=== PATIENT | female | born 1940 | race Caucasian/White ===

== ENCOUNTER 2016-03-14 10:03 | Inpatient (IN) ==
[2016-03-08 12:17] LABS: Appearance,Urine CLEAR; Bacteria,Urine 0 /hpf (0); Bilirubin,Urine NEG (NEG); Calcium Oxalate Crystals,Urine FEW /hpf (0); Color,Urine YELLOW; Glucose,Urine (UA) NEGATIVE (NEG); Leukocyte Esterase,Urine 25 /uL (NEG); Mucus,Urine FEW /hpf (0); Nitrate,Urine NEG (NEG); Protein,Urine NEG (NEG); Specific Gravity,Urine 1.019 (1.000-1.035); Urine Blood 0.2 mg/dL (<0.03); Urine Hyaline Cast 1 /lpf (0-2); Urine RBC 8 /hpf (0-1); Urine Squamous Epithelial Cell < 1 /hpf (0-4); Urine Transitional Epi Cells < 1 /hpf (0-2); Urine WBC 2 /hpf (0-4); Urobilinogen,Urine NEG (NEG)
[2016-03-08 12:47] LABS: Basophils # (Auto) 0 K/mcL (0.0-0.3); Basophils % (Auto) 0.5 % (0.0-2.0); Eosinophils # (Auto) 0.2 K/mcL (0.0-0.7); Eosinophils % (Auto) 2.2 % (0.0-7.0); Granulocytes % (Auto) 62.4 % (38.0-78.0); Lymphocytes # (Auto) 2.1 K/mcL (1.5-4.8); Lymphocytes % (Auto) 26.3 % (15.5-49.0); Mean Cell Volume 90.9 fL (80.0-100.0); Mean Corpuscular HGB Conc 32.2 g/dL (31.0-36.0); Mean Corpuscular Hemoglobin 29.3 pg (26.0-34.0); Monocytes # (Auto) 0.7 K/mcL (0.1-0.9); Monocytes % (Auto) 8.6 % (1.0-9.0); Platelet Count 272 K/mcL (140-440); RBC 4.94 M/mcL (4.00-5.20); Red Cell Distribution Width 12.9 % (11.5-14.5)
[2016-03-08 12:55] LABS: Blood Urea Nitrogen 18 mg/dl (8-23)
[~2016-03-14 10:03] MED LIST: ACETAMINOPHEN 500 MG TABLET PO SCH; EPINEPHRINE IJ SCH; KETOROLAC 30 MG, ROPIVACAINE HCL/PF 49.5 ML, EPINEPHrine 0.5 MG, 0.9 % SODIUM CHLORIDE ... IJ SCH; PREGABALIN 150 MG CAPSULE PO SCH; ROPIVACAINE HCL IJ SCH; SODIUM CHLORIDE IJ SCH; ceFAZolin 1 GM VIAL IV SCH; oxyCODONE 10 MG TAB.ER.12H PO SCH
[2016-03-14] MEDS ORDERED: PROPOFOL 200 MG/20 ML VIAL IV ONE (13:25)
[2016-03-14] MEDS ORDERED: fentaNYL 250 MCG/5 ML VIAL IV ONE (13:25)
[2016-03-14] MEDS ORDERED: ePHEDrine 50 MG/ML AMPUL IV ONE (13:25)
[2016-03-14] MEDS ORDERED: ROPIVACAINE HCL/PF 30 ML VIAL IJ ONE (13:25)
[2016-03-14] MEDS ORDERED: PHENYLEPHRINE 10 MG/ML VIAL IV ONE (13:25)
[2016-03-14] MEDS ORDERED: MIDAZOLAM 5 MG/5 ML VIAL IV ONE (13:25)
[2016-03-14] MEDS ORDERED: TRANEXAMIC ACID 1,000 MG/10 ML VIAL IV ONE ×2 (13:25→14:34)
[2016-03-14] MEDS ORDERED: DEXAMETHASONE 10 MG/ML VIAL IV ONE (13:25)
[2016-03-14] MEDS ORDERED: ONDANSETRON 4 MG/2 ML VIAL IV ONE (13:25)
[2016-03-14] MEDS ORDERED: LIDOCAINE HCL/PF 100 MG/5 ML SYRINGE IV ONE (13:25)
[2016-03-14] MEDS ORDERED: GENTAMICIN SULFATE 800 MG/20 ML VIAL IR ONE (13:46)
[2016-03-14] MEDS ORDERED: METHOCARBAMOL 1,000 MG/10 ML VIAL IV PRN (13:55)
[2016-03-14] MEDS ORDERED: LACTATED RINGERS 250 ML IV PRN (13:55)
[2016-03-14] MEDS ORDERED: PROMETHAZINE 25 MG/ML VIAL IM ONE (13:55)
[2016-03-14] MEDS ORDERED: ONDANSETRON 4 MG/2 ML VIAL IV PRN ×2 (13:55→14:34)
[2016-03-14] MEDS ORDERED: fentaNYL 100 MCG/2 ML VIAL IV PRN (13:55)
[2016-03-14] MEDS ORDERED: PROMETHAZINE 25 MG/ML VIAL IV PRN (13:55)
[2016-03-14] MEDS ORDERED: BENZOCAINE/MENTHOL 1 LOZENGE PO PRN ×2 (13:55→14:34)
[2016-03-14] MEDS ORDERED: MEPERIDINE 25 MG/ML SYRINGE IV PRN (13:55)
[2016-03-14] MEDS ORDERED: HYDROmorphone 2 MG/ML SYRINGE IV PRN ×2 (13:55→14:34)
[2016-03-14] MEDS ORDERED: diphenhydrAMINE 50 MG/ML VIAL IV PRN (13:55)
[2016-03-14] MEDS ORDERED: METOCLOPRAMIDE 10 MG/2 ML VIAL IV PRN (13:55)
[2016-03-14] MEDS ORDERED: FLUMAZENIL 0.1 MG/ML ML IV PRN (13:55)
[2016-03-14] MEDS ORDERED: IPRATROPIUM/ALBUTEROL 3 ML AMPUL.NEB NEB PRN (13:55)
[2016-03-14] MEDS ORDERED: NALOXONE HCL 0.4 MG/ML VIAL IV PRN (13:55)
[2016-03-14] MEDS ORDERED: ePHEDrine 50 MG/ML AMPUL IV PRN (13:55)
[2016-03-14] MEDS ORDERED: MEPERIDINE 50 MG/ML SYRINGE IM ONE (13:55)
[2016-03-14] MEDS ORDERED: LACTATED RINGERS 1,000 ML IV SCH (14:00)
[2016-03-14] MEDS ORDERED: ACETAMINOPHEN 325 MG TABLET PO PRN (14:34)
[2016-03-14] MEDS ORDERED: TEMAZEPAM 15 MG CAPSULE PO PRN (14:34)
[2016-03-14] MEDS ORDERED: HYDROcodone/APAP 10/325MG TABLET PO PRN (14:34)
[2016-03-14] MEDS ORDERED: MAGNESIUM HYDROXIDE 30 ML ORAL.SUSP PO PRN (14:34)
[2016-03-14] MEDS ORDERED: POLYETHYLENE GLYCOL 3350 17 GM PACKET PO PRN (14:34)
[2016-03-14] MEDS ORDERED: BISACODYL 10 MG SUPP.RECT PR PRN (14:34)
[2016-03-14] MEDS ORDERED: FLEETS ADULT ENEMA PR PRN (14:34)
--- NOTE | 2016-03-14 14:34 | Brief Operative Note ---
Date of procedure: 03/14/16 Pre-op diagnosis: left knee djd in all three compartment Post-op diagnosis: same Procedure: left tka Grafts/Implants: Yes Anesthesia: GETA Complications: none Complications Description: 03/14/16 14:33 none Surgeon: Aquiles Baltazar Wire Twisting Machine Operator: Wes Nam
--- NOTE | 2016-03-14 15:32 | XRay Report ---
HISTORY: Reason for Exam:Post-Op Total Knee FINDINGS: There is a well positioned total knee prosthesis. There is no acute fracture. Lateral to the prosthetic tibial plateau there are 2 small, contiguous well-circumscribed soft tissue calcifications. These may be old spurs. There is another smaller dystrophic calcification along the medial side of the joint. IMPRESSION: Well-positioned knee prosthesis Interpreted and Authenticated by: Tadeo Noble 03/14/16
--- NOTE | 2016-03-14 16:08 | Operative Note ---
DATE OF OPERATION: 03/14/2016 PREOPERATIVE DIAGNOSIS: Left knee degenerative arthritis, severe. POSTOPERATIVE DIAGNOSIS: Left knee degenerative arthritis, severe. PROCEDURE: Left total knee arthroplasty. SURGEON: Aquiles Baltazar MD. FREIGHT HUSTLER: Wes Nam PA-C. ANESTHESIA: General LMA anesthesia. COMPLICATIONS: None. ESTIMATED BLOOD LOSS: About 50 mL. IMPLANTS: ODC size 4 femur, size 3 tibial baseplate with a 12 mm poly, 35 mm patellar button. DESCRIPTION OF PROCEDURE: The patient was brought to the operating room and put to sleep with general LMA anesthesia. Once asleep, the patient had the left leg sterilely prepped and draped in the usual sterile fashion. Leg was exsanguinated and tourniquet inflated to 250 pounds of pressure. We confirmed the operative site, and the patient received preoperative antibiotics and tranexamic acid. Once this was confirmed, we then placed sterile bandage on. We then placed a midline incision, a mid vastus approach performed. We showed severe arthritis of the patellofemoral joint and the medial compartment. At this point, we proceeded with a total knee arthroplasty. We placed an intramedullary guide hole into the femur and the tibia. We made our distal femoral cut at 9 mm. We then made our anterior and posterior and chamfer cuts for a size 9 component after sizing the knee, and then the tibia was cut to 9 mm below the least worn area medially. Once this was done, we then removed the bony fragments, removed the meniscus and remnants. Once these were removed, the meniscus and loose bodies, spurs were removed posteriorly, and then we placed a tibial baseplate size 3. We punched into place a punch for the ODC knee, and then trialed the femur and the tibia. The size was approximately size 4 femur, size 3 tibia. We trialed a 9, a 10, an 11 and then a 12 poly. It was stable medially, but unstable laterally or tight laterally. To balance the knee both in flexion and extension, we did a subperiosteal release of the lateral collateral ligament on the femoral side. This seemed to be tight only in extension, not in flexion. We irrigated thoroughly and then this balanced very nicely both in extension and flexion and mid flexion. We then cemented into place a size 4 femur, a size 3 tibial baseplate, and a 12 mm poly was placed. The patella, though only measuring about 16 to 17 mm, was cut to a 13 mm thickness and then a 35 mm patellar button was used to resurface the patella. This gave excellent alignment and tracking. The patella was cemented into place with a 35 mm patella. We irrigated thoroughly. Tourniquet was deflated at approximately 50 minutes. Once this was done, we then closed the mid vastus approach with #2 Ethibond and #1 double-armed Maxon stitch was an interlocking stitch. Skin was closed with 2-0 Vicryl and romana superficially. The patient tolerated this well without complication. RBH:mel Job ID: [id number] Doc ID: [id number] Aquiles Baltazar MD
[2016-03-14] MEDS: 0.45 % SODIUM CHLORIDE 1,000 ML IV SCH (16:10)
[2016-03-14] MEDS: KETOROLAC 15 MG/ML VIAL IV SCH (17:44)
[2016-03-14] MEDS ORDERED: SENNOSIDES 1 TABLET PO SCH (21:00)
[2016-03-14] MEDS: DOCUSATE SODIUM 100 MG CAPSULE PO SCH (21:17)
[2016-03-14] MEDS: ASPIRIN 325 MG ENTERIC COATED TABLET PO SCH (21:17)
[2016-03-14] MEDS: ceFAZolin 1 GM VIAL IV SCH (21:23)
[2016-03-14] MEDS: 0.9 % SODIUM CHLORIDE 10 ML SYRINGE IV SCH (22:03)
[2016-03-15] MEDS: KETOROLAC 15 MG/ML VIAL IV SCH ×2 (00:32→06:28)
[2016-03-15] MEDS: 0.45 % SODIUM CHLORIDE 1,000 ML IV SCH ×3 (00:33→06:45)
[2016-03-15] MEDS: ceFAZolin 1 GM VIAL IV SCH (05:13)
[2016-03-15] MEDS: 0.9 % SODIUM CHLORIDE 10 ML SYRINGE IV SCH (05:36)
[2016-03-15] MEDS: ASPIRIN 325 MG ENTERIC COATED TABLET PO SCH (07:19)
--- NOTE | 2016-03-15 07:35 | Orthopedic Progress Note ---
Subjective Patient information: Note initiated : 03/15/16 at 7:33 am Service Date, if different from initiated Date: [] Patient: Shelbi Choi 76 y/o F admitted on 03/14/16 for Left Total Knee Arthroplasty. Chief Complaint: [Pt is stable this morning on post operative day 1 without any significant concerns or complaints. Patients vital signs have remained stable. Patients dressing is dry and exhibits a grossly intact neurovascular and neuromotor exam. Patients 10 point ROS is otherwise negative. ] Objective Vital signs: Vital Signs Temp Pulse Resp BP Pulse Ox 03/15/16 06:48 71 14 95 03/15/16 04:00 97.6 F 71 12 101/57 98 03/15/16 00:00 98.2 F 75 12 116/62 95 03/14/16 22:10 95 03/14/16 19:19 97.5 F L 70 12 100/62 95 03/14/16 18:34 95 03/14/16 18:09 68 102/63 96 03/14/16 17:39 69 108/67 96 03/14/16 17:24 76 106/64 96 03/14/16 17:09 69 110/69 96 03/14/16 16:54 73 122/65 95 03/14/16 16:39 70 117/71 94 03/14/16 16:24 71 115/72 93 03/14/16 16:09 75 110/69 91 03/14/16 16:00 96.7 F L 80 16 113/68 94 03/14/16 15:37 98.0 F 77 16 124/57 95 03/14/16 15:25 88 16 124/57 95 03/14/16 15:10 85 20 114/62 95 03/14/16 14:54 97.6 F 81 12 104/55 99 03/14/16 10:57 98.6 F 66 16 123/79 97 Intake and Output 03/14/16 03/15/16 03/15/16 21:59 05:59 13:59 Intake Total 1740 / 1740 1950 / 1950 1000 / 1000 Output Total 150 / 150 725 / 725 Balance 1590 / 1590 1225 / 1225 1000 / 1000 Intake: IV 1300 / 1300 1000 / 1000 1000 / 1000 Sodium Chloride 0.45% 1, 1000 / 1000 1000 / 1000 000 ml @ 125 mls/hr IV . Q8H NI Rx#:[id number] Oral 440 / 440 950 / 950 Output: Void Amount 100 / 100 725 / 725 Estimated Blood Loss 50 / 50 Other: Meal Dinner Percent of Meal Consumed 25% Feeding Ability Independent # Voids 1 1 Weight 169 lb 8 oz Intake & Output: Intake & Output 03/14/16 03/15/16 03/15/16 21:59 05:59 13:59 Intake Total 1740 / 1740 1950 / 1950 1000 / 1000 Output Total 150 / 150 725 / 725 Balance 1590 / 1590 1225 / 1225 1000 / 1000 Weight 169 lb 8 oz Intake: IV 1300 / 1300 1000 / 1000 1000 / 1000 Sodium Chloride 0.45% 1, 1000 / 1000 1000 / 1000 000 ml @ 125 mls/hr IV . Q8H NI Rx#:[id number] Oral 440 / 440 950 / 950 Output: Void Amount 100 / 100 725 / 725 Estimated Blood Loss 50 / 50 Other: Meal Dinner Percent of Meal Consumed 25% Feeding Ability Independent # Voids 1 1 Incision: Yes healing Incision clean and dry: Yes Dressing: Yes clean, Yes dry Weight bearing status: full Neurological exam IM: Yes neurovascular intact Extremities exam IM: Yes Foot pink and warm, Yes neurovascular intact - Labs CBC & BMP: 03/15/16 05:10 03/08/16 10:19 Labs: Orthopedic Labs 03/08/16 10:19 PT 13.6 INR 1.0 APTT 32 03/15/16 03/08/16 05:10 10:19 Hgb 14.5 Hct 37.0 44.9 Assessment and Plan (1) Hx of total knee arthroplasty Patient has been educated regarding wound care and dressings, follow up recommendations, and medication use. We will f/u with the patient within 2-3 weeks for wound check. Status: Acute
--- NOTE | 2016-03-15 07:40 | Discharge Summary ---
Ortho Discharge - TKA - Patient Instructions Diet: Regular Diet Activity: activity as tolerated, weight bearing as tolerated Total Knee Protocol: For Total Knee: Start ROM BARB with stationary bike or rocking chair. Work on gaining full extension of knee. Posterior dislocation precautions provided. Hip abductor strengthening and gait training instructions provided. Apply Cryocuff as instructed. Dressing Care: May shower in 3 days, Aquacel Ag - leave on for 5 days Additional Instructions: CPM for home use - Problem Maintenance (1) Hx of total knee arthroplasty Status: Acute - Follow Up Plan Disposition: Home, Self-Care Prognosis: Good Rehab Potential: Good I certify that the patient requires SNF services: No Overall status at discharge: patient is progressing back to baseline - Orders For Discharge Prescriptions: Aspirin [Ecotrin] 325 mg PO BID #60 tab.ec Docusate Sodium [Colace] 100 mg PO BID #60 capsule HYDROcodone/APAP 10/325MG [[place] 10/325Mg] 1 - 2 tab PO Q4HP PRN #75 tablet PRN Reason: Pain
[2016-03-15] MEDS: DOCUSATE SODIUM 100 MG CAPSULE PO SCH (09:28)
== END 2016-03-15 10:43 | disposition home or self-care (01) | DRG 470 ==
LOC: MEDSUR 10:03
PROVIDERS: ADMIT Orthopaedic Surgery; ATTEND Orthopaedic Surgery